=== PATIENT | female | born 1955 | race Two or more races ===

== ENCOUNTER 2023-08-02 15:14 | Emergency (ER) | payer SELFPAY ==
[~2023-08-02] VITALS: Ht 167.6 cm; Wt 50.4 kg
[2023-08-02 15:15] VITALS: BP 132/66; PULSE 73; RESP 18; TEMP 98.2; O2SAT 98
[2023-08-02] MEDS ORDERED: MELO7.5T7 PO (16:53)
== END 2023-08-02 17:00 | disposition home or self-care (01) ==
LOC: ER 15:14 → EDBD 15:14 → ER 17:00
DX: M54.2 Cervicalgia (principal); Z79.899 Other long term (current) drug therapy; W21.05XA Struck by basketball, initial encounter; Y93.89 Activity, other specified; Y92.89 Other specified places as the place of occurrence of the external cause; Y99.8 Other external cause status
CPT/HCPCS: 72125